=== PATIENT | female | born 1960 | race Caucasian/White ===

== ENCOUNTER 2018-01-17 10:50 | Emergency (ER) | payer BC, SELFPAY ==
[2018-01-17 11:06] VITALS: BP 141/91; PULSE 123; RESP 20; TEMP 36.6; O2SAT 100
[2018-01-17 12:03] LABS: Bilirubin Small (Negative); Blood Moderate (Negative); Clarity Clear; Glucose Negative (Negative); Ketones >=160 mg/dL (Negative); Leukocyte Esterase Negative (Negative); Nitrite Negative (Negative); Specific Gravity >= 1.030 (1.005-1.025); Urobilinogen 0.2 EU/dL (Up TO 0.2); pH 5.5 (5-8)
[2018-01-17 12:12] LABS: Bacteria Rare HPF (Negative); Casts 0-2 Coarse Granular LPF (Negative); Crystals Negative HPF (Negative); Epithelial Cells Few HPF (Negative); Mucus Moderate (Negative); WBC 0-2 HPF (0-5)
[2018-01-17 12:13] LABS: C & S Indicated? No
[2018-01-17] MEDS: Normal Saline 1,000 ML 1000 ML IV ×2 (12:15→15:00)
--- NOTE | 2018-01-17 12:45 | DI.CT_ITS ---
SYMPTOMS/DIAGNOSIS: ABDOMINAL PAIN CT SCAN OF THE ABDOMEN AND PELVIS: CT scan of the abdomen and pelvis was performed following the uneventful administration of intravenous contrast material. No priors for comparison. The visualized lung bases show no acute abnormalities. The liver, spleen, pancreas, gallbladder, bile ducts, adrenal glands, kidneys, ureters and bladder are unremarkable. Reproductive organs are unremarkable. There is diverticulosis of the descending and sigmoid colon. Mild inflammatory changes are seen around the descending colon and the proximal sigmoid colon, consistent with acute diverticulitis. No abscess or free air is seen. The remainder of the bowel is unremarkable. The aorta is intact. No significant abdominal or pelvic adenopathy or pneumoperitoneum is seen. There is a trace amount of free fluid in the cul-de-sac, which is likely physiologic. The bones are intact. IMPRESSION: Findings of acute diverticulitis involving the descending colon and proximal sigmoid colon. No free air or abscess. The findings were discussed with Dimitry Navarro of the Emergency Department on the date of the examination.
[2018-01-17 13:00] LABS: Abs Immature Grans 0.02 k/cumm (0.0-0.09); Absolute Basophil Count 0.03 k/cumm (0.0-0.2); Absolute Eosinophil Count 0.04 k/cumm (0.0-0.7); Absolute Lymphocyte Count 2.42 k/cumm (1.2-3.4); Absolute Monocyte Count 0.73 k/cumm (0.11-0.7); Absolute Neutrophil Count 6.76 k/cumm (1.2-6.7); Basophils % 0.3; Eosinophils % 0.4; HCT 44.8 % (36.0-46.0); HGB 14.9 g/dL (12.0-15.5); Immature Grans % 0.2; Lymphocytes % 24.2; Mean Corp. HGB Concentration 33.3 g/dL (32.0-36.0); Mean Corpuscular Hemoglobin 30.7 pg (27.0-33.0); Mean Corpuscular Volume 92.4 fL (80-95); Mean Platelet Volume 10.3 fL (8.0-11.0); Monocytes % 7.3; Neutrophils % 67.6; Platelet Count 272 x1000/uL (130-400); RBC 4.85 m/cumm (4.00-5.20); RBC Distribution Width 13.7 % (11.7-14.6)
[2018-01-17 13:26] LABS: ALT 31 U/L (12-78); AST 21 U/L (15-37); Albumin 4.3 g/dL (3.4-5.0); Alkaline Phosphatase 129 U/L (46-116); Anion Gap 11.9 mmol/L (3-11); BUN 16 mg/dL (7-18); Bilirubin, Total 0.4 mg/dL (0.2-1.0); CO2 27.1 mmol/L (21.0-32.0); CREATININE 0.76 mg/dL (0.55-1.02); Calcium 9.2 mg/dL (8.5-10.1); Chloride 101 mmol/L (98-107); Glucose 83 mg/dL (70-100); Lipase 82 U/L (73-393); Potassium 3.3 mmol/L (3.5-5.1); Sodium 140 mmol/L (136-145); Total Protein 8.4 g/dL (6.4-8.2)
[2018-01-17] MEDS: Omnipaque 350 MG/ML 100 ML BTL IJ (14:02)
--- NOTE | 2018-01-17 14:33 | W.ED.GENAD ---
Discharge Plan Disposition Patient Disposition: HOME Condition: Stable Discharge Details Chief Complaint: Abd Prob Clinical Impression: Diverticulitis Primary Care Provider: Jonathan Norris ED Provider: Dimitry Navarro Home Meds and New Rx's Prescriptions: New metronidazole 500 mg tablet 500 mg PO TID 7 Days Qty: 21 RF: 0 ciprofloxacin HCl 500 mg tablet 500 mg PO BID 7 Days Qty: 14 RF: 0 Discharge Instructions Instructions: Diverticulitis (ED), Diverticulitis Diet (ED) Additional Instructions: Return immediately to the emergency department for any new or significant worsening of symptoms. These may include fevers, persistent nausea vomiting, or severe worsening of pain. Otherwise take your medication as prescribed and follow-up with your primary care provider for reassessment. Referrals: Jonathan Norris [Primary Care Provider] - 5 days Discharge Data Discharge Date/Time-TO BE ENTERED AT DEPARTURE: 01/17/18 15:42 Medical Decision Making Patient presenting the emergency department chief complaint of abdominal pain. Patient states on Wednesday evening she had an episode of sharp abdominal pain and then some diarrhea that did become slightly bloody and mucousy. She has had a lack of appetite since and continued discomfort that has become more mild but persistent. Patient does state history of diverticulosis on previous colonoscopy. Physical exam does show left lower quadrant tenderness with some mild tenderness to left upper quadrant. Patient is tachycardic physical exam is otherwise unremarkable. Plan to check labs and CT imaging along with IV fluids. Patient denies any need for pain medication at this time. Concern for diverticulitis, infectious diarrhea, other intra-abdominal pathology. Review of labs is overall nondiagnostic with specifically having no severe significant leukocytosis. Review of CT imaging and speaking with radiologist shows diverticulitis without abscess or perforation. Patient placed up on Cipro and Flagyl and given second liter of fluids due to continued tachycardia. Patient was able to tolerate p.o. intake so patient was discharged to follow-up with primary care provider for reassessment later this week and to otherwise take medication as prescribed. Patient denies any need for pain medication so was encouraged use [id number]. After discussion of diagnosis and plan of care patient is no further needs, questions, or concerns and states clear understanding to return to the emergency department for any worsening symptoms. HPI General Mode of arrival: ambulatory. Date/Time Provider Initiated Documentation: 01/17/18 11:29. Limitations to Documentation: no limitations. Information obtained by: patient. History of Present Illness 57 year old F presents to the emergency department with the chief complaint of abd pain, described as mild and moderate, with intensity rated at 4. Quality is described as aching, and is localized to the abdomen and left. Patient started experiencing this day(s) (3) and it has been constant. No relieving factors improve symptom(s), Eating worsens symptoms . Patient notes no other symptoms.. Patient did receive the following treatments prior to arrival, none Related Data Home Medications Medication Instructions Recorded Confirmed ciprofloxacin HCl 500 mg PO BID 7 Days #14 tab 01/17/18 metronidazole 500 mg PO TID 7 Days #21 tab 01/17/18 Previous Rx's Medication Instructions Recorded ciprofloxacin HCl 500 mg PO BID 7 Days #14 tab 01/17/18 metronidazole 500 mg PO TID 7 Days #21 tab 01/17/18 Allergies Allergy/AdvReac Type Severity Reaction Status Date / Time No Known Allergies Allergy Unverified 01/17/18 11:10 General Stated Complaint: Abd Prob ELOISE: 3 Review of Systems Constitutional Reports chills, Reports fever(s) and Reports poor appetite Cardiovascular Denies chest pain and Denies dyspnea Respiratory Denies dyspnea Gastrointestinal Reports as per HPI, Reports abdominal pain, Denies melena, Reports change in bowel habits, Denies constipation, Reports diarrhea, Reports nausea and Denies vomiting Genitourinary Denies hematuria, Denies urinary incontinence, Denies urinary hesitancy, Denies urinary urgency and Denies vaginal discharge Integumentary/Breasts Denies rash PFSH Family History Mother Essential hypertension Father Essential hypertension COPD (chronic obstructive pulmonary disease) Neoplasm Sister Essential hypertension Brother No problems noted. Grandfather No problems noted. Grandfather No problems noted. Grandmother Heart disease Grandmother Cerebrovascular accident Medical History Headache Social History Smoking/Tobacco Use Status: Never Surgical History Colonoscopy - IV Sedation (10/07/15) Exam Const General: cooperative Orientation: alert, awake and oriented x3 Resp Effort & Inspection: normal respiratory effort and able to speak in complete sentences Auscultation: clear to auscultation bilaterally Cardio Rate: regular rate Rhythm: regular rhythm Heart Sounds: S1 normal and S2 normal GI Palpation: soft, no hepatosplenomegaly, not firm, no guarding, no masses, no pulsatile masses, not rigid, no splenomegaly and tender in the LLQ, in the LUQ and suprapubicly Auscultation: normal bowel sounds Back/Spine/Pelvis Back: no CVA tenderness Neuro General: alert, awake, oriented x3, gait normal and moves all extremities Course Vital Signs Temperature 36.6 C 01/17/18 11:06 Pulse 123 H 01/17/18 11:06 Respiratory Rate 20 01/17/18 11:06 Blood Pressure 141/91 H 01/17/18 11:06 Pulse Oximetry 100 01/17/18 11:06 Temperature 36.6 C 01/17/18 11:06 Temperature Source Temporal Artery Scan 01/17/18 11:06 Pulse 123 H 01/17/18 11:06 Respiratory Rate 20 01/17/18 11:06 Blood Pressure 141/91 H 01/17/18 11:06 Blood Pressure Position Sitting 01/17/18 11:06 Pulse Oximetry 100 01/17/18 11:06 Oxygen Delivery Method Room Air 01/17/18 11:06 Oxygen Flow Rate 0 01/17/18 11:06 Pain Level 3 01/17/18 11:06 Lab/Test Results Lab/Test Results: Laboratory Tests Range/Units 01/17/18 01/17/18 01/17/18 11:57 12:10 12:10 WBC (4.4-10.8) k/cumm 10.00 RBC (4.00-5.20) m/cumm 4.85 Hgb (12.0-15.5) g/dL 14.9 Hct (36.0-46.0) % 44.8 MCV (80-95) fL 92.4 MCH (27.0-33.0) pg 30.7 MCHC (32.0-36.0) g/dL 33.3 RDW (11.7-14.6) % 13.7 Plt Count (130-400) x1000/uL 272 MPV (8.0-11.0) fL 10.3 Immature Gran % 0.2 Neutrophils % 67.6 Lymphocytes % 24.2 Monocytes % 7.3 Eosinophils % 0.4 Basophils % 0.3 Absolute Neutrophils (1.2-6.7) k/cumm 6.76 H Absolute Lymphocytes (1.2-3.4) k/cumm 2.42 Absolute Monocytes (0.11-0.7) k/cumm 0.73 H Absolute Eosinophils (0.0-0.7) k/cumm 0.04 Absolute Basophils (0.0-0.2) k/cumm 0.03 Sodium (136-145) mmol/L 140 Potassium (3.5-5.1) mmol/L 3.3 L Chloride (98-107) mmol/L 101 Carbon Dioxide (21.0-32.0) mmol/L 27.1 Anion Gap (3-11) mmol/L 11.9 H BUN (7-18) mg/dL 16 Creatinine (0.55-1.02) mg/dL 0.76 Estimated GFR/1.73 m2 (mL/min/1.73m2) >= 60.00 Glucose (70-100) mg/dL 83 Calcium (8.5-10.1) mg/dL 9.2 Total Bilirubin (0.2-1.0) mg/dL 0.4 AST (15-37) U/L 21 ALT (12-78) U/L 31 Alkaline Phosphatase (46-116) U/L 129 H Total Protein (6.4-8.2) g/dL 8.4 H Albumin (3.4-5.0) g/dL 4.3 Lipase (73-393) U/L 82 Urine Color (Yellow) Yellow Urine Clarity Clear Urine pH (5-8) 5.5 Ur Specific [place] (1.005-1.025) >= 1.030 H Urine Protein (Negative) mg/dL 30 H Urine Ketones (Negative) mg/dL >=160 Urine Blood (Negative) Moderate H Urine Nitrite (Negative) Negative Urine Bilirubin (Negative) Small H Urine Urobilinogen (Up TO 0.2) EU/dL 0.2 Ur Leukocyte Esterase (Negative) Negative Urine RBC (0-2) 5-10 H Urine WBC (0-5) HPF 0-2 Ur Epithelial Cells (Negative) HPF Few Urine Crystals (Negative) HPF Negative Urine Bacteria (Negative) HPF Rare Urine Casts (Negative) LPF 0-2 coarse granular Urine Mucus (Negative) Moderate Ur Culture Indicated? No Urine Glucose (Negative) mg/dL Negative
[2018-01-17 14:35] VITALS: BP 141/85; PULSE 109; RESP 16
--- NOTE | 2018-01-17 14:44 | ED.GENADUL_ITS ---
Discharge Plan Disposition Patient Disposition: HOME Condition: Stable Discharge Details Chief Complaint: Abd Prob Clinical Impression: Diverticulitis Primary Care Provider: Jonathan Norris ED Provider: Dimitry Navarro Home Meds and New Rx's Prescriptions: New metronidazole 500 mg tablet 500 mg PO TID 7 Days Qty: 21 RF: 0 ciprofloxacin HCl 500 mg tablet 500 mg PO BID 7 Days Qty: 14 RF: 0 Discharge Instructions Instructions: Diverticulitis (ED), Diverticulitis Diet (ED) Additional Instructions: Return immediately to the emergency department for any new or significant worsening of symptoms. These may include fevers, persistent nausea vomiting, or severe worsening of pain. Otherwise take your medication as prescribed and follow-up with your primary care provider for reassessment. Referrals: Jonathan Norris [Primary Care Provider] - 5 days Discharge Data Discharge Date/Time-TO BE ENTERED AT DEPARTURE: 01/17/18 15:42 Medical Decision Making Patient presenting the emergency department chief complaint of abdominal pain. Patient states on Wednesday evening she had an episode of sharp abdominal pain and then some diarrhea that did become slightly bloody and mucousy. She has had a lack of appetite since and continued discomfort that has become more mild but persistent. Patient does state history of diverticulosis on previous colonoscopy. Physical exam does show left lower quadrant tenderness with some mild tenderness to left upper quadrant. Patient is tachycardic physical exam is otherwise unremarkable. Plan to check labs and CT imaging along with IV fluids. Patient denies any need for pain medication at this time. Concern for diverticulitis, infectious diarrhea, other intra-abdominal pathology. Review of labs is overall nondiagnostic with specifically having no severe significant leukocytosis. Review of CT imaging and speaking with radiologist shows diverticulitis without abscess or perforation. Patient placed up on Cipro and Flagyl and given second liter of fluids due to continued tachycardia. Patient was able to tolerate p.o. intake so patient was discharged to follow- up with primary care provider for reassessment later this week and to otherwise take medication as prescribed. Patient denies any need for pain medication so was encouraged use [id number]. After discussion of diagnosis and plan of care patient is no further needs, questions, or concerns and states clear understanding to return to the emergency department for any worsening symptoms. HPI General Mode of arrival: ambulatory . Date/Time Provider Initiated Documentation: 01/17/18 11:29 . Limitations to Documentation: no limitations . Information obtained by: patient . History of Present Illness 57 year old F presents to the emergency department with the chief complaint of abd pain, described as mild and moderate, with intensity rated at 4. Quality is described as aching, and is localized to the abdomen and left. Patient started experiencing this day(s) (3) and it has been constant. No relieving factors improve symptom(s), Eating worsens symptoms . Patient notes no other symptoms.. Patient did receive the following treatments prior to arrival, none Related Data Home Medications Medication Instructions Recorded Confirmed ciprofloxacin HCl 500 mg PO BID 7 Days #14 tab 01/17/18 metronidazole 500 mg PO TID 7 Days #21 tab 01/17/18 Previous Rx's Medication Instructions Recorded ciprofloxacin HCl 500 mg PO BID 7 Days #14 tab 01/17/18 metronidazole 500 mg PO TID 7 Days #21 tab 01/17/18 Allergies Allergy/AdvReac Type Severity Reaction Status Date / Time No Known Allergies Allergy Unverified 01/17/18 11:10 General Stated Complaint: Abd Prob ELOISE: 3 Review of Systems Constitutional Reports chills, Reports fever(s) and Reports poor appetite Cardiovascular Denies chest pain and Denies dyspnea Respiratory Denies dyspnea Gastrointestinal Reports as per HPI, Reports abdominal pain, Denies melena, Reports change in bowel habits, Denies constipation, Reports diarrhea, Reports nausea and Denies vomiting Genitourinary Denies hematuria, Denies urinary incontinence, Denies urinary hesitancy, Denies urinary urgency and Denies vaginal discharge Integumentary/Breasts Denies rash PFSH Family History Mother Essential hypertension Father Essential hypertension COPD (chronic obstructive pulmonary disease) Neoplasm Sister Essential hypertension Brother No problems noted. Grandfather No problems noted. Grandfather No problems noted. Grandmother Heart disease Grandmother Cerebrovascular accident Medical History Headache Social History Smoking/Tobacco Use Status: Never Surgical History Colonoscopy - IV Sedation (10/07/15) Exam Const General: cooperative Orientation: alert, awake and oriented x3 Resp Effort & Inspection: normal respiratory effort and able to speak in complete sentences Auscultation: clear to auscultation bilaterally Cardio Rate: regular rate Rhythm: regular rhythm Heart Sounds: S1 normal and S2 normal GI Palpation: soft, no hepatosplenomegaly, not firm, no guarding, no masses, no pulsatile masses, not rigid, no splenomegaly and tender in the LLQ, in the LUQ and suprapubicly Auscultation: normal bowel sounds Back/Spine/Pelvis Back: no CVA tenderness Neuro General: alert, awake, oriented x3, gait normal and moves all extremities Course Vital Signs Temperature 36.6 C 01/17/18 11:06 Pulse 123 H 01/17/18 11:06 Respiratory Rate 20 01/17/18 11:06 Blood Pressure 141/91 H 01/17/18 11:06 Pulse Oximetry 100 01/17/18 11:06 Temperature 36.6 C 01/17/18 11:06 Temperature Source Temporal Artery Scan 01/17/18 11:06 Pulse 123 H 01/17/18 11:06 Respiratory Rate 20 01/17/18 11:06 Blood Pressure 141/91 H 01/17/18 11:06 Blood Pressure Position Sitting 01/17/18 11:06 Pulse Oximetry 100 01/17/18 11:06 Oxygen Delivery Method Room Air 01/17/18 11:06 Oxygen Flow Rate 0 01/17/18 11:06 Pain Level 3 01/17/18 11:06 Lab/Test Results Lab/Test Results: Laboratory Tests Range/Units 01/17/18 01/17/18 01/17/18 11:57 12:10 12:10 WBC (4.4-10.8) k/cumm 10.00 RBC (4.00-5.20) m/cumm 4.85 Hgb (12.0-15.5) g/dL 14.9 Hct (36.0-46.0) % 44.8 MCV (80-95) fL 92.4 MCH (27.0-33.0) pg 30.7 MCHC (32.0-36.0) g/dL 33.3 RDW (11.7-14.6) % 13.7 Plt Count (130-400) x1000/uL 272 MPV (8.0-11.0) fL 10.3 Immature Gran % 0.2 Neutrophils % 67.6 Lymphocytes % 24.2 Monocytes % 7.3 Eosinophils % 0.4 Basophils % 0.3 Absolute Neutrophils (1.2-6.7) k/cumm 6.76 H Absolute Lymphocytes (1.2-3.4) k/cumm 2.42 Absolute Monocytes (0.11-0.7) k/cumm 0.73 H Absolute Eosinophils (0.0-0.7) k/cumm 0.04 Absolute Basophils (0.0-0.2) k/cumm 0.03 Sodium (136-145) mmol/L 140 Potassium (3.5-5.1) mmol/L 3.3 L Chloride (98-107) mmol/L 101 Carbon Dioxide (21.0-32.0) mmol/L 27.1 Anion Gap (3-11) mmol/L 11.9 H BUN (7-18) mg/dL 16 Creatinine (0.55-1.02) mg/dL 0.76 Estimated GFR/1.73 m2 (mL/min/1.73m2) >= 60.00 Glucose (70-100) mg/dL 83 Calcium (8.5-10.1) mg/dL 9.2 Total Bilirubin (0.2-1.0) mg/dL 0.4 AST (15-37) U/L 21 ALT (12-78) U/L 31 Alkaline Phosphatase (46-116) U/L 129 H Total Protein (6.4-8.2) g/dL 8.4 H Albumin (3.4-5.0) g/dL 4.3 Lipase (73-393) U/L 82 Urine Color (Yellow) Yellow Urine Clarity Clear Urine pH (5-8) 5.5 Ur Specific [place] (1.005-1.025) >= 1.030 H Urine Protein (Negative) mg/dL 30 H Urine Ketones (Negative) mg/dL >=160 Urine Blood (Negative) Moderate H Urine Nitrite (Negative) Negative Urine Bilirubin (Negative) Small H Urine Urobilinogen (Up TO 0.2) EU/dL 0.2 Ur Leukocyte Esterase (Negative) Negative Urine RBC (0-2) 5-10 H Urine WBC (0-5) HPF 0-2 Ur Epithelial Cells (Negative) HPF Few Urine Crystals (Negative) HPF Negative Urine Bacteria (Negative) HPF Rare Urine Casts (Negative) LPF 0-2 coarse granular Urine Mucus (Negative) Moderate Ur Culture Indicated? No Urine Glucose (Negative) mg/dL Negative
[2018-01-17] MEDS: Ciprofloxacin 500 MG TAB PO (15:00)
[2018-01-17] MEDS: metroNIDAZOLE 500 MG TAB PO (15:00)
[2018-01-17 15:46] VITALS: BP 129/90; PULSE 84; RESP 16; TEMP 36.6; O2SAT 98
== END 2018-01-17 15:42 | disposition home or self-care (01) ==
PROVIDERS: Emergency Provider Nurse Practitioner Family; PCP Family Medicine
DX: K57.32 Diverticulitis of large intestine without perforation or abscess without bleeding (principal); R11.0 Nausea; R19.7 Diarrhea, unspecified
CPT/HCPCS: 36415; 80053; 83690; 96361; 99285; 74177; 81003; 81015; 85025; 99284; J3490

== ENCOUNTER 2020-03-04 01:43 | Outpatient (CLI) | payer BC, SELFPAY ==
--- NOTE | 2020-03-04 07:45 | DI.RAD_ITS ---
EXAM: XR SHOULDER LT COMPLETE 2+V CLINICAL HISTORY: LT shoulder pain longer than 6 weeks, M25.512. TECHNIQUE: 2D digital imaging was performed. COMPARISON: No exams were available for comparison FINDINGS: There is no evidence of fracture or dislocation. Subacromial space is not diminished and there are n o calcifications within the subacromial space. There are mild degenerative changes in the glenohumer al joint. No obvious degenerative changes nor diastasis of the acromioclavicular joint. No lytic os seous lesions. IMPRESSION: Mild degenerative changes. No soft tissue calcifications. DATA REPOSITORY: RADIATION DOSE DELIVERED:
== END 2020-03-04 02:03 ==
PROVIDERS: PCP Family Medicine; Visit Provider Nurse Practitioner Family
DX: M19.012 Primary osteoarthritis, left shoulder (principal)
CPT/HCPCS: 73030

== ENCOUNTER 2020-06-10 02:21 | Outpatient (CLI) | payer BC, SELFPAY ==
--- NOTE | 2020-06-10 14:45 | DI.MRI_ITS ---
EXAM: MR UPPER JOINT LT WO CLINICAL HISTORY: Persistent symptoms,ADHESIVE CAPSULITIS,TENDINITIS,M75.02,M75.22,M75.52,. TECHNIQUE: Multiplanar multisequence MRI was performed. COMPARISON: CR XR SHOULDER LT COMPLETE 2+V from 03/04/2020 FINDINGS: BONES: There is no fracture or contusion pattern. JOINTS: Mild degenerative changes are seen at the left AC joint. The glenohumeral joint is normal. TENDONS: Supraspinatus: There does appear to be mild tendinosis of the supraspinatus. There is hyperintense s ignal seen on the bursal surface of the supraspinatus tendon suspicious for partial tear.. Infraspinatus: Unremarkable. Subscapularis: There is tendinosis of the subscapularis tendon. [place]: Unremarkable. Biceps and [place]: Unremarkable. MUSCLES: Unremarkable. GLENOID LABRUM: Unremarkable on this noncontrast examination. SOFT TISSUES: Unremarkable. LIGAMENTS: Unremarkable. OTHER: There is a small amount of fluid in the subacromial bursa. IMPRESSION: 1. Findings suspicious for partial bursal surface tear of the supraspinatus tendon. 2. Tendinosis of the subscapularis tendon. 3. Small amount of fluid in the subacromial bursa. DATA REPOSITORY:
== END 2020-06-10 02:41 ==
PROVIDERS: PCP Family Medicine; Visit Provider Student in an Organized Health Care Education/Training Program
DX: M25.512 Pain in left shoulder (principal); M75.22 Bicipital tendinitis, left shoulder; M75.52 Bursitis of left shoulder; M75.82 Other shoulder lesions, left shoulder
CPT/HCPCS: 73221

== ENCOUNTER 2020-07-02 02:56 | Outpatient (CLI) | payer BC, SELFPAY ==
[2020-07-02 11:37] LABS: Source Nasal/Nares
[2020-07-02 14:30] LABS: COVID-19 PCR Negative (Negative)
== END 2020-07-02 02:57 | disposition home or self-care (01) ==
LOC: LBO 02:56
PROVIDERS: PCP Family Medicine; Visit Provider Student in an Organized Health Care Education/Training Program
DX: Z20.822 Contact with and (suspected) exposure to COVID-19 (principal); Z01.818 Encounter for other preprocedural examination
CPT/HCPCS: 87635

== ENCOUNTER 2020-07-04 09:28 | Day surgery (SDC) | payer BC, SELFPAY ==
[2020-07-04 09:39] VITALS: BP 148/101; PULSE 87; RESP 16; TEMP 36.3; O2SAT 100
[2020-07-04] MEDS: Lactated Ringers 1,000 ML 100 ML IV (10:03)
--- NOTE | 2020-07-04 10:11 | ANES.PREOP_ITS ---
General Info Date of Service Date Performed: 07/04/20 Height: 5 ft 4 in Weight: 63.8 kg Body Mass Index (BMI): 24.1 Surgical Procedure: Operation Date: 07/04/20 11:10 Proposed Procedures Side Surgeon p Shoulder Manipulation Left Luis Alfredo Sanchez MD Meds Allergies and Home Medications Allergies Allergy/AdvReac Type Severity Reaction Status Date / Time No Known Allergies Allergy Verified 07/04/20 09:45 Home Medication Medication Instructions Recorded phenylephrine-acetaminophen 1 tab PO PRN 07/04/20 [Tylenol Sinus Headache] Current Visit Medications: Current Medications Generic Name Dose Route Start Last Admin Trade Name Freq PRN Reason Stop Dose Admin Ringer's Solution 1,000 mls @ 100 mls/hr 07/04/20 06:00 07/04/20 10:03 IV 08/02/20 23:59 100 mls/hr INFUSION LAZARUS Administration IV Miscellaneous Supplies 1 each 07/04/20 06:00 Iv Access IV 08/02/20 23:59 DIRECTED LAZARUS Sodium Chloride 0 ml 07/04/20 06:00 Normal Saline Flush 10 Ml Syr IV 08/02/20 23:59 PRN PRN Sodium Chloride 0 ml 07/04/20 06:00 Normal Saline 10 Ml Vial IJ 08/02/20 23:59 DIRECTED PRN Sterile Water 0 ml 07/04/20 06:00 Water,Injection,Sterile 10 Ml Vial IJ 08/02/20 23:59 DIRECTED PRN PFSH Active Problems Active Problems: Problem Status Onset Code Abnormal mammogram R92.8 Headache R51 Diverticulosis K57.90 Rupture of anterior cruciate ligament 09/05/79 S83.519A Ovarian cyst N83.209 Mammographic microcalcification History of dysfunctional uterine bleeding Z87.42 History of abnormal cervical Papanicolaou smear Z87.898 Depressive disorder F32.9 Shoulder pain, left M25.512 Adhesive capsulitis of left shoulder ~12/2019 M75.02 Tendinitis of long head of biceps brachii of left shoulder M75.22 Bursitis of left shoulder M75.52 Medical History Medical History Headache Surgical History Surgical History (Updated 07/04/20 @ 09:45 by Sharla Summers RN) Colonoscopy - IV Sedation (10/07/15) Dr Torrie Matta, repeat 10 yrs H/O anterior cruciate ligament surgery Left H/O removal of cyst Ovarian cyst Tobacco Smoking/Tobacco Use Status: Never Passive smoking exposure: Yes Second hand exposure: Yes Alcohol Alcohol Intake: current Alcohol intake frequency: a few times a month Alcohol type: beer Substance Use Substance use: Rarely Substance use type: marijuana Vital Signs and Lab Results Vital Signs Most Recent Vital Signs in EMR: Most Recent Vital Signs Temp Pulse Resp BP Pulse Ox 36.3 C L 87 16 148/101 H 100 07/04/20 09:39 07/04/20 09:39 07/04/20 09:39 07/04/20 09:39 07/04/20 09:39 Lab Results Blood Type / Crossmatch: No Data to Display Complete Blood Count: White Blood Count 10.00 k/cumm (4.4-10.8) 01/17/18 12:10 01/17/18 Red Blood Count 4.85 m/cumm (4.00-5.20) 01/17/18 12:10 01/17/18 Hemoglobin 14.9 g/dL (12.0-15.5) 01/17/18 12:10 01/17/18 Hematocrit 44.8 % (36.0-46.0) 01/17/18 12:10 01/17/18 Platelet Count 272 x1000/uL (130-400) 01/17/18 12:10 01/17/18 Complete Metabolic Panel: Sodium Level 140 mmol/L (136-145) 01/17/18 12:10 01/17/18 Potassium Level 3.3 mmol/L (3.5-5.1) L 01/17/18 12:10 01/17/18 Chloride Level 101 mmol/L (98-107) 01/17/18 12:10 01/17/18 Carbon Dioxide Level 27.1 mmol/L (21.0-32.0) 01/17/18 12:10 01/17/18 Blood Urea Nitrogen 16 mg/dL (7-18) 01/17/18 12:10 01/17/18 Creatinine 0.76 mg/dL (0.55-1.02) 01/17/18 12:10 01/17/18 Calcium Level 9.2 mg/dL (8.5-10.1) 01/17/18 12:10 01/17/18 Albumin 4.3 g/dL (3.4-5.0) 01/17/18 12:10 01/17/18 Glucose Level 83 mg/dL (70-100) 01/17/18 12:10 01/17/18 Liver Function Panel: Alanine Aminotransferase (ALT/SGPT) 31 U/L (12-78) 01/17/18 12:10 01/17/18 Aspartate Amino Transf (AST/SGOT) 21 U/L (15-37) 01/17/18 12:10 01/17/18 Coagulation Panel: No Data to Display Cardiac Panel: No Data to Display Arterial Blood Gas: No Data to Display Venous Blood Gas: No Data to Display Pancreas Panel: Lipase 82 U/L (73-393) 01/17/18 12:10 01/17/18 Thyroid Panel: No Data to Display Infectious Disease: Coronavirus (COVID-19)(PCR) Negative (Negative) 07/02/20 11:18 07/02/20 Coronavirus 2019 Source Nasal/nares 07/02/20 11:18 07/02/20 Blood Cultures: No Data to Display Toxicology Panel: No Data to Display Panel: 2 No Data to Display Imaging and Studies Imaging and Studies EKG Summary:: 08/18/2018: NSR Anesthesia Assessment and Plan Anesthesia History Personal History: No History of Anesthesia Complications Family History: No Family History of Anesthesia Complications Exercise Tolerance Exercise Tolerance: Metabolic Equivalents>4 Pertinent Negatives Pertinent Negatives: No Symptoms of GERD Cardiac & Pulmonary Exam Cardiac Exam: Normal S1/S2 Heart Sounds Pulmonary Exam: Clear Bilateral Breath Sounds Airway Exam Known Difficult Airway: No Mallampati Class: 3 Mouth Opening: Normal (> 3cm) Thyromental Distance: Greater than 3 cm Neck Range of Motion: Full ROM Neck Circumference: Normal Teeth Condition: Normal Dentition ASA Classification ASA Score: ASA 2 ASA Emergency: No NPO Status NPO Status: NPO Clears >2 hours, Solids >8 hours Anesthesia Plan Anesthesia Technique: General Anesthesia Airway Planned: Natural Airway Monitors Used: Standard Monitors
[2020-07-04 10:16] VITALS: BMI 24.1
--- NOTE | 2020-07-04 11:43 | W.ANESNERVE ---
Nerve Block Single Injection Procedure Date and Time Date Performed: 07/04/20 Procedure Start: 11:05 Location Where Procedure Performed Procedure Location: PACU Reason Performed: Postoperative Analgesia Requesting Provider: Daniel Timeout Performed Timeout Performed: Yes Monitoring Used ECG, Blood Pressure, SpO2 and ETCO2 Sterility Sterility: Hand Hygiene, Surgical Cap, Surgical Mask, Sterile Gloves, Eye Protection and Chlorhexidine Sedation Given During Procedure Sedation Given (Indicate Dose Given): No Sedation given Patient Mental Status Patient Mental Status: Awake Nerve Block 1st Nerve Block: Laterality: Left Block Type: Interscalene Needle / Catheter Used: 80mm SonoPlex II Local Anesthetic Bolus (Indicate Dose Given): Lidocaine used for local infiltration of skin, Injected in 3-5ml increments after negative blood aspiration, Bupivacaine 0.25% (10 mL) and Exparel (10 mL) Additives (Indicate Dose Given): None Ultrasound: Sterile probe cover and gel used Ultrasound Image Saved?: Yes Nerve Stimulator: Not Used Paresthesia: None Procedure Tolerated: No Complications and Patient tolerated well Procedure Outcome: Successful Performed By: Brittany Mcneill
--- NOTE | 2020-07-04 11:44 | W.PM.DSUDISC ---
Discharge Plan Disposition Patient Disposition: HOME Condition: Stable Discharge Details Reason For Visit: Left shoulder stiffness Attending Provider: Luis Alfredo Sanchez Primary Care Provider: Jonathan Norris Home Meds and New Rx's Prescriptions: New naproxen 250 mg tablet 250 - 500 mg PO BID PRN (Reason: Moderate pain or swelling) Qty: 60 RF: 0 oxycodone 5 mg tablet 5 - 10 mg PO Q4H PRN (Reason: moderate to severe pain) Qty: 9 RF: 0 Continued Tylenol Sinus Headache 5-325 mg Tablet 1 tab PO PRNRF: 0 Discharge Instructions Additional Instructions: Surgery: Left shoulder manipulation under anesthesia Activity: Weightbearing as tolerated. May use sling while nerve block is in place. Encourage progressive daily shoulder stretching exercises. Start physical therapy as previously arranged. Prescriptions: Naproxen 250 mg take 1-2 every 12 hours with a meal as needed for moderate pain Oxycodone 5 mg take 1-2 every 4-6 hours as needed for severe pain You may use [id number] Tylenol (acetaminophen) as needed for mild pain. These pain medications may be taken all at once or in different combinations as needed. Also, recommend Colace (docusate) as a stool softener as surgery and pain medicine cause constipation. Dressings: None Follow-up: 10-[address] Sanchez Let us know right away if you develop any redness, drainage, fevers, chest pain, or trouble breathing. Do not drink alcohol or drive for at least 24 hours after anesthesia. Please call the office during business hours with any questions or concerns. Referrals: Luis Alfredo Sanchez MD [ [facility] STAFF PHYSICIAN] - Discharge Orders Discharge Orders: Discharge Order (Routine); Ordered 07/04/20 Ordered By: Luis Alfredo Sanchez DS: Diagnosis Discharge Diagnosis (1) Adhesive capsulitis of left shoulder: Status: Acute
--- NOTE | 2020-07-04 11:49 | W.PM.OP ---
Date of service: 07/04/20 Time of Service: 11:49 Operative Note Operative Note DATE OF PROCEDURE: 07/04/20 PRE-OP DIAGNOSIS: Left shoulder adhesive capsulitis POST-OP DIAGNOSIS: same PROCEDURE: Left shoulder manipulation under anesthesia, CPT #47554 SURGEON: Luis Alfredo Sanchez COMPLIANCE SPECIALIST: None None ANESTHESIA TYPE: General:No Airway and Primary Nerve Block Refer to Anesthesia Record ESTIMATED BLOOD LOSS: 0 COMPLICATIONS: None Patient was transported to: PACU Patient's condition: stable Indications: Please see complete medical record for details. Procedure Description: In the operating room, general anesthesia was induced. The patient was positioned supine on the stretcher. All bony prominences were well-padded. Preoperative antibiotics were omitted. The correct patient, procedure, and side of the procedure were all verified prior to beginning. The left shoulder was examined. Preoperative noted stiffness remained with forward elevation about 115 degrees, external rotation at the side about 20 degrees, internal rotation about 75 degrees. Gentle, progressive manipulation in forward elevation and external rotation was used to release significant but soft adhesions. Forward elevation released quickly to full. External rotation at the side and at 90 degrees took was easily achieved as well with gentle, progressive stretching. Cross body abduction and internal rotation had a minimal release easily to full as well. Full range of motion was checked and compared to contralateral side with no differences. Steady stretching in all directions and about 30 repetitions into forward elevation, abduction with external rotation, abduction with internal rotation, and external rotation at the side as well as cross body abduction were all repeated numerous times confirming full release with no spurring back into limited motion. Range of motion was excellent and symmetrical with contralateral uninjured side and noted to be past 165 degrees forward elevation, almost 90 degrees external rotation, and 90 degrees internal rotation. There was minimal crepitation about the glenohumeral joint with circumduction. No instability. Photos were obtained to review with the patient. The patient awoke from anesthesia without complication and was transferred to the recovery room in a stable condition.
[2020-07-04] MEDS: oxyCODONE 5 MG TAB PO (11:52)
[2020-07-04 12:12] VITALS: BP 131/90; PULSE 93; TEMP 36.2; O2SAT 96
[2020-07-04 12:31] VITALS: BP 137/87; PULSE 88; RESP 17; TEMP 36.4; O2SAT 98
[2020-07-04] MEDS: Normal Saline Flush 10 ML SYR IV (12:35)
[2020-07-04] MEDS: Ketorolac 30 MG/ML VIAL IVP (12:35)
--- NOTE | 2020-07-04 13:01 | W.ANESPOSTOP ---
Postoperative Evaluation Date, Time and Location Date Performed: 07/04/20 Time Performed: 12:30 Patient Location: Day Surgery Unit Vital Signs Most Recent Imported Vital Signs: Most Recent Vital Signs Temp Pulse Resp BP Pulse Ox 36.4 C L 88 17 137/87 98 07/04/20 12:31 07/04/20 12:31 07/04/20 12:31 07/04/20 12:31 07/04/20 12:31 Pain Score Most Recent Pain Score: Most Recent Pain Score Pain Level 8 07/04/20 12:31 Assessment Mental Status: Awake (Alert & Oriented to Patient Baseline) Airway and Respiratory Function: Patent airway with normal (patient baseline) respiratory exam Cardiovascular Function: Hemodynamically Stable Hydration Status: Adequately Hydrated Nausea & Vomiting: No Nausea or Vomiting Pain: Pain is Moderate or Severe (Pain understands block and pain management, comfortable with current PO plan) Postoperative Pain Management: Pain being addressed with medication Peripheral Nerve Block: Regional nerve block not resolved at time of post operative discharge
== END 2020-07-04 13:18 | disposition home or self-care (01) ==
PROVIDERS: PCP Family Medicine; Visit Provider Student in an Organized Health Care Education/Training Program
PROC: (CPT 23700; principal; 2020-07-04 11:00)
DX: M75.02 Adhesive capsulitis of left shoulder (principal); M75.52 Bursitis of left shoulder
CPT/HCPCS: 23700; 76942; J1885; J2001; J2405; J2704

== ENCOUNTER 2021-08-20 02:15 | Outpatient (CLI) | payer BC, SELFPAY ==
[2021-08-20 13:04] LABS: Hemoglobin A1C 5.5 % (<5.7)
[2021-08-20 13:10] LABS: Calculated LDL 144 mg/dL (<100); Cholesterol 233 mg/dL (<200); HDL Cholesterol 74 mg/dL (40-60); Triglyceride 77 mg/dL (<150)
== END 2021-08-20 02:16 | disposition home or self-care (01) ==
LOC: LOS 02:15
PROVIDERS: PCP Nurse Practitioner Family; Visit Provider Nurse Practitioner Family
DX: Z13.220 Encounter for screening for lipoid disorders (principal); Z13.1 Encounter for screening for diabetes mellitus
CPT/HCPCS: 36415; 80061; 83036

== ENCOUNTER 2022-09-11 10:00 | Outpatient (RCR) | payer BC, SELFPAY ==
--- NOTE | 2022-09-11 10:00 | HOLTER_ITS ---
APPROVED REPORT Conclusion This is a 48-hour Holter monitor ordered for palpitations Rhythm throughout is sinus with an average heart rate of 73. Minimum was 52, maximum 137 There were no ventricular dysrhythmias a total of 30 isolated atrial premature beats were seen There was no atrial fibrillation, no SVT, no high-grade AV block, no pauses greater than 3 seconds No patient symptoms were reported
== END 2022-10-05 23:59 | disposition home or self-care (01) ==
LOC: CARDOPNVT 10:00
PROVIDERS: PCP Nurse Practitioner Family; Visit Provider Nurse Practitioner Family
DX: R00.2 Palpitations (principal)
CPT/HCPCS: 93225; 93226

== ENCOUNTER 2022-10-06 15:31 | Outpatient (REF) | payer BC, SELFPAY ==
--- NOTE | 2022-10-06 15:15 | PAPFT_PTH ---
PATIENT: Elisa Reagan LOC: [facility] U#:[id number] AGE/SX: 61/F ROOM: RE10/06/[address]: Minnie Goins NP : [id number] BED: DIS: 10/06/2022 SPEC #: [id number] RECD: 10/06/22 17:32 STATUS: MARQUEZ REDima #: [id number] SHEY: 10/06/22 15:[address]: Minnie Goins NP DEPT: [facility] Cytology RECD BY: Danni Servin ENTERED: 10/06/22 17:32 SP TYPE: PAPFT OTHR DR: Campbell Avalos NP Tissues: 1 - CX/ENDOCX FOR PAP SMEARS Procedures: PAP THIN PREP/[facility] Screening HPV DNA PROBE Comments: [id number]
== END 2022-10-06 15:32 | disposition home or self-care (01) ==
LOC: LBN 15:31
PROVIDERS: PCP Nurse Practitioner Family; Visit Provider Nurse Practitioner Women's Health
DX: Z12.4 Encounter for screening for malignant neoplasm of cervix (principal); Z11.51 Encounter for screening for human papillomavirus (HPV)
CPT/HCPCS: 88142; 87624

== ENCOUNTER 2024-08-23 03:15 | Outpatient (CLI) | payer BC, SELFPAY ==
[2024-08-23 09:46] LABS: Hemoglobin A1C 5.7 % (<5.7)
[2024-08-23 10:18] LABS: Calculated LDL 127 mg/dL (<100); Cholesterol 219 mg/dL (<200); HDL Cholesterol 74 mg/dL (>or=50); Triglyceride 94 mg/dL (<150)
== END 2024-08-23 03:16 | disposition home or self-care (01) ==
LOC: LBO 03:15
PROVIDERS: PCP Nurse Practitioner Family; Visit Provider Nurse Practitioner Family
DX: Z13.220 Encounter for screening for lipoid disorders (principal); Z13.1 Encounter for screening for diabetes mellitus
CPT/HCPCS: 36415; 80061; 83036